=== PATIENT | male | born 1995 | race Caucasian/White ===

== ENCOUNTER 2019-04-01 07:43 | Day surgery (SDC) | payer OTHER ==
[~2019-04-01] VITALS: Ht 177.8 cm; Wt 92.5 kg
[~2019-04-01 07:43] MED LIST: LR 1,000 ML IV SCH
[2019-04-01] MEDS ORDERED: MORPHINE 4 MG/ML INJ. SYRINGE IVP PRN ×3 (07:45)
[2019-04-01] MEDS ORDERED: METOCLOPRAMIDE HCL 10 MG/2 ML VIAL IVP PRN (07:45)
[2019-04-01] MEDS ORDERED: ACETAMINOPHEN WITH CODEINE 12.5 ML UDC PO ONE ×2 (09:30→10:30)
[2019-04-01] MEDS ORDERED: DEXAMETHASONE SOD PHOSPHATE 4 MG/ML VIAL ONE (10:30)
[2019-04-01] MEDS ORDERED: NEOSTIGMINE METHYLSULFATE 1 MG/ML, 10 ML VIAL ONE (10:30)
[2019-04-01] MEDS ORDERED: fentaNYL CITRATE/PF 100 MCG/2 ML AMP ONE (10:30)
[2019-04-01] MEDS ORDERED: LR 1,000 ML IV.SOLN IV ONE (10:30)
[2019-04-01] MEDS ORDERED: BACITRACIN 1 GM OINT TP ONE (10:30)
[2019-04-01] MEDS ORDERED: WATER FOR IRRIGATION,STERILE 1,000 ML IRRIG.SOLN IR ONE (10:30)
[2019-04-01] MEDS ORDERED: PHENYLEPHRINE HCL 10 MG/ML VIAL (NEOSYNEPHRINE) ONE (10:30)
[2019-04-01] MEDS ORDERED: MIDAZOLAM HCL 5 MG/ML VIAL (VERSED) IV ONE (10:30)
[2019-04-01] MEDS ORDERED: ROCURONIUM BROMIDE 10 MG/ML (ZEMURON) ONE (10:30)
[2019-04-01] MEDS ORDERED: GLYCOPYRROLATE 0.2 MG/ML VIAL ONE (10:30)
[2019-04-01] MEDS ORDERED: PROPOFOL 200MG/ 20ML VIAL (DIPRIVAN) IV ONE (10:30)
[2019-04-01] MEDS ORDERED: SEVOFLURANE 15 MIN GAS INH ONE (10:30)
[2019-04-01] MEDS ORDERED: ONDANSETRON HCL 4 MG/2 ML VIAL ONE (10:30)
[2019-04-01 13:45] VITALS: BP_SYST 105
== END 2019-04-01 12:25 | disposition home or self-care (01) ==
LOC: SMU 07:43 → SDS 07:43
PROVIDERS: ATTEND Otolaryngology Plastic Surgery within the Head & Neck
DX: J35.01 Chronic tonsillitis (principal); J35.8 Other chronic diseases of tonsils and adenoids
CPT/HCPCS: 42826; 88304; J1100; J2250; J2370; J2405; J2704; J2710; J3010; J3490; J7120